=== PATIENT | female | born 1990 | race Caucasian/White ===

== ENCOUNTER 2016-05-30 10:25 | Emergency (ER) | payer OTHER ==
[~2016-05-30] VITALS: Ht 161.3 cm; Wt 106.4 kg
[2016-05-30 10:27] VITALS: BP 148/67; PULSE 96; RESP 14; O2SAT 98
--- NOTE | 2016-05-30 10:48 | ED.REPORT ---
HPI-Rash / Abscess Date of Service May 30, 2016 ED Provider: Dr. Ulysses Boateng MD A 26 year old female with a history of anxiety, PCOS and depression presents to the ED complaining of left cheek pain, redness and swelling that began 3 days ago. Patient was seen at Urgent Care yesterday and was prescribed clindamycin which has provided no relief. Her symptoms initially began as a "small bump" and she was able to obtain pus after applying pressure to the area. Associated symptoms include numbness to the cheek, diffuse itchiness, discomfort when she rotates her neck, visual blurriness secondary to swelling, headache, chills, subjective fever, nausea and rhinorrhea. Patient reports that the pressure in her face has become increasingly worse. She denies dysphagia or vomiting. Nursing Notes Stated Complaint: SPIDER BITE Chief Complaint: Skin Rash/Abscess Nursing Notes Reviewed: Yes Allergies: Coded Allergies: acetaminophen (Verified Allergy, Mild, itch, 05/30/16) hydrocodone (Verified Allergy, Mild, itch, 05/30/16) tramadol (Verified Allergy, Mild, itch, 05/30/16) Scheduled Sulfamethoxazole/Trimeth 800-160 mg (Bactrim DS) 1 Each Tablet 1 TABLET PO BID Scheduled PRN Ibuprofen (Ibuprofen) 800 Mg Tablet 800 MG PO TID PRN PRN For Pain Ondansetron ODT (Zofran ODT) 4 Mg Tablet 4 MG PO Q4H PRN PRN For Nausea oxyCODONE-Acetaminophen 5-325 mg (oxyCODONE-Acetaminophen 5-325 mg) 1 Each Tablet 1-2 TAB PO Q6H PRN PRN For Pain General Time Seen by MD: 10:47 Chief Complaint Other (Swelling to cheek) Hx Obtained From: Patient Arrived By: Walk-in Onset Occurred: 3 days ago Symptom Duration: Since onset Location: : Head/face Quality: Painful, Pressure Severity: Current: Mild Severity: Maximum: Moderate Associated with: Reports Facial swelling, Reports Fever (subjective ), Reports Headache, Reports Nausea, Denies Vomiting Pertinent Negative: Pt denies other symptoms Recent Healthcare: No recent hospitalization, Recent doctor visit Past Medical History Past Medical History PCOS Migraines ADHD Anxiety Depression PTSD Past Surgical History Reports: Tonsillectomy Smoking History Current Every Day Smoker Social History Alcohol Use: "Social" Drug Use: Denies drug use Other Social History: Local resident Ambulatory Status Independent Review of Systems Constitutional: Reports: Chills, Fever (subjective) Eyes: Reports: Blurred bilateral (worse on the left), Eye pain left Ears / Nose / Throat: Denies: Throat swelling (dysphagia) GI: Reports: Nausea, Denies: Vomiting Musculoskeletal: Reports: Neck pain (discomfort with neck rotation ) Skin: Reports Itching, Reports Swelling (Swelling, redness, lesion to the left cheek ) Allergy / Immune: Reports: Rhinorrhea Complete sys rev & neg: except as marked. Neurologic: Reports: Headache, Numbness (left cheek ) Physical Exam Initial Vital Signs Vital Signs (First) Date Time Temp Pulse Resp B/P Pulse Ox O2 Delivery O2 Flow Rate FiO2 05/30/16 10:27 37.2 96 14 148/67 98 Room Air Initial VS: Reviewed Neck: Supple, Non-tender, Full range of motion Extremities: Vascular intact, Neuro intact, No swelling, No tenderness Neurologic: Alert, Oriented, Nonfocal Psychiatric: Mood/affect normal, Behavior normal, Normal thought content General/Constitutional: Awake, Alert, No acute distress Skin: Atraumatic, Color NL Rash / Lesion Notes: RASH/LESION: preseptal periorbital cellulitis to the left cheek Rash / Lesion Location: Positive: Face Head / Eyes: Atraumatic, Normocephalic, PERRL Respiratory / Chest: Atraumatic, No respiratory distress Cardiovascular: Heart sounds NL, No murmurs Heart Rate / Rhythm: Positive: Tachycardia Upper Extremity / MS: Atraumatic, Neurologic intact, Vascular intact Lower Extremity / Pelvis / MS: Atraumatic, Neurologic intact, Vascular intact Re-Eval/Medical Decision Re-Evaluation/Progress : Time of Eval: 11:12 Patient Status: Condition improved Re-Evaluation/Progress Note: Patient is re-evaluated. She is informed of her diagnosis. Patient understands and agrees with the intended treatment plan. Counseled Regarding: Diagnosis, Need for follow-up, When/why to return to ED Discharge & Departure Impression: Primary Impression: Preseptal cellulitis of left eye Disposition: Home Discharge Condition All VS Reviewed: Yes Condition: Improved Patient Instructions: Orbital Cellulitis (ED) Additional Instructions: Thank you for trusting us with your care this morning. Your examination is reassuring that there is no dangerous cause for concern at this time. Your symptoms are not likely due to a spider bite and I believe that you are experiencing periorbital cellulitis. Your symptoms should improve by this Wednesday and will likely resolve within the next few weeks. Continue clindamycin and add Bactrim. Please stop taking the Tramadol and take 800 mg of ibuprofen every 8 hours and take 1000 mg of Tylenol every 6 hours for fever, pain and/or swelling. Please take Percocet as directed. Each Percocet has 325 mg of Tylenol in it so that he needs to be included in your 4000 mg total per 24 hours. Take 1 Zofran every 8 hours as needed for nausea. Use a warm compress every few hours for 5 minutes at a time. Schedule a follow up appointment with your primary care physician in the next week if symptoms do not improve. Please return to the ED if you begin to experience any new or worsening conditions including any dizziness, weakness, vomiting, numbness/tingling, chills or fever over 103F, Referrals: [facility] Scribe Attestation Portions of this note were transcribed by Eduard Eaton. I, Dr. Boateng personally performed the history, physical exam and medical decision-making; I reviewed and confirmed the accuracy of the information in the transcribed note. Signed by: Kenzie Peck, 05/30/16 1130. Ulysses Boateng MD May 30, 2016 10:48 EDUARD EATON May 30, 2016 10:54
[2016-05-30] MEDS ORDERED: SULF1TAB7 PO (11:14)
[2016-05-30] MEDS ORDERED: OXYC1TAB24 PO (11:14)
[2016-05-30] MEDS ORDERED: ONDA4TAB9 PO (11:14)
[2016-05-30] MEDS ORDERED: IBUP800T28 PO (11:31)
== END 2016-05-30 11:33 | disposition home or self-care (01) ==
LOC: SED 10:25
DX: L03.213 Periorbital cellulitis (principal); F17.200 Nicotine dependence, unspecified, uncomplicated; Z88.6 Allergy status to analgesic agent; Z88.5 Allergy status to narcotic agent; Z88.8 Allergy status to other drugs, medicaments and biological substances